=== PATIENT | male | born 1990 | race Caucasian/White ===

== ENCOUNTER 2021-01-04 16:50 | Emergency (ER) | payer OTHER ==
[~2021-01-04] VITALS: Ht 177.8 cm; Wt 106.6 kg
[2021-01-04 18:21] LABS: MEAN CELL VOLUME 99.4 fl (80.0-94.0); MEAN CORPUSCULAR HGB 32.7 pg (27.0-31.0); MEAN CORPUSCULAR HGB CONC 32.9 g/dl (33.0-37.0); MEAN PLATELET VOLUME 9.1 fl (9.6-12.3); PLATELET COUNT AUTOMATED 268 10*3/uL (130-400); RED BLOOD COUNT 5.23 10*6/uL (4.50-5.90); RED CELL DISTRI WIDTH 12.8 % (0-14.5); WHITE BLOOD COUNT 9.7 10*3/uL (4.8-10.8)
[2021-01-04 18:37] LABS: ALBUMIN 4.5 gm/dl (3.1-4.5); ALKALINE PHOSPHATASE 45 U/L (45-117); CHLORIDE 105 mmol/L (98-107); CREATININE 1.26 mg/dL (0.70-1.30); POTASSIUM 4.3 mmol/L (3.5-5.1); SGOT/AST 20 IU/L (3-35); SGPT/ALT 57 U/L (12-78); SODIUM 142 mmol/L (136-145); TOTAL PROTEIN 7.4 gm/dL (6.4-8.2)
[2021-01-04 18:38] LABS: BUN 9 mg/dl (7-24)
[2021-01-04 18:54] LABS: ATYPICAL LYMPHS 1 % (0-0); BASOPHILS 2 % (0-1); TOTAL CELLS COUNTED 100 #CELLS
[2021-01-04 18:55] LABS: PLATELET SUFFICIENCY NORMAL (NORMAL)
== END 2021-01-04 21:23 | disposition home or self-care (01) ==
LOC: ED 16:50
PROVIDERS: Physician Assistant
DX: G43.109 Migraine with aura, not intractable, without status migrainosus (principal)